=== PATIENT | female | born 1985 | race Caucasian/White ===

== ENCOUNTER 2023-08-29 07:55 | Outpatient (CLI) | payer BC | END 2023-08-29 07:56 | disposition home or self-care (01) | LOC: BICMAMMO 07:55 | PROVIDERS: ATTEND Student in an Organized Health Care Education/Training Program | DX: Z12.31 Encounter for screening mammogram for malignant neoplasm of breast (principal) | CPT/HCPCS: 77063; 77067 ==

== ENCOUNTER 2023-10-18 06:07 | Day surgery (SDC) | payer BC ==
[2023-10-17 15:25] VITALS: BMI 32.1
[2023-10-18] MEDS ORDERED: Acetaminophen 500 MG TAB ONE (06:29)
[2023-10-18] MEDS ORDERED: Ketorolac Tromethamine 30 MG (1 mL) VIAL ONE (06:29)
[2023-10-18] MEDS ORDERED: Indocyanine Green 25 MG/10 ML VIAL ONE (06:46)
[2023-10-18] MEDS ORDERED: EPINEPHrine 1 MG/ML VIAL ONE (06:46)
[2023-10-18] MEDS ORDERED: Bupivacaine 0.25% HCL 30 ML VIAL ONE (06:47)
[2023-10-18] MEDS ORDERED: Rocuronium Bromide 10 MG/ML (10ML VIAL) ONE (07:00)
[2023-10-18] MEDS ORDERED: PROPOFOL 20 ML ONE (07:00)
[2023-10-18] MEDS ORDERED: Lidocaine 1% PF 5 ML VIAL ONE (07:00)
[2023-10-18] MEDS ORDERED: fentaNYL PF 100 MCG/2 ML SYRINGE ONE (07:00)
[2023-10-18] MEDS ORDERED: CEFAZOLIN 2 GM VIAL ONE (07:21)
[2023-10-18] MEDS ORDERED: Sodium Chloride 0.9% 100 ML ONE (07:21)
[2023-10-18] MEDS ORDERED: Dexamethasone 20 MG/5 ML VIAL ONE (07:48)
[2023-10-18] MEDS ORDERED: Ondansetron PF 4 MG/2 ML Vial ONE (07:48)
[2023-10-18] MEDS ORDERED: NEOSTIGMINE 3 MG/3 ML SYR 3 MG/3 ML SYRINGE ONE (08:17)
[2023-10-18] MEDS ORDERED: Glycopyrrolate 0.2 MG/ML 5 ML SYRINGE ONE (08:17)
[2023-10-18] MEDS ORDERED: fentaNYL 50 mcg/mL 1 mL Vial ONE ×2 (08:47→09:12)
[2023-10-18] MEDS ORDERED: Promethazine HCl 25 MG/ML VIAL ONE (08:53)
[2023-10-18] MEDS ORDERED: HYDROcodone/Acetaminophen 5/325 mg Tablet ONE (10:00)
== END 2023-10-18 10:56 | disposition home or self-care (01) ==
LOC: SDC 06:07
PROVIDERS: ATTEND Specialist
PROC: 0FT44ZZ Resection of Gallbladder, Percutaneous Endoscopic Approach (ICD-10-PCS; principal; 2023-10-18)
PROC: BF03YZZ Plain Radiography of Gallbladder and Bile Ducts using Other Contrast (ICD-10-PCS; principal; 2023-10-18)
DX: K80.10 Calculus of gallbladder with chronic cholecystitis without obstruction (principal); Z87.891 Personal history of nicotine dependence
CPT/HCPCS: 88304; C1889; J0171; J0665; J1100; J1885; J2405; J2550; J2704; J3010; J3490

== ENCOUNTER 2024-09-05 08:48 | Outpatient (CLI) | payer BC | END 2024-09-05 08:49 | disposition home or self-care (01) | LOC: BICMAMMO 08:48 | PROVIDERS: ATTEND Student in an Organized Health Care Education/Training Program | DX: Z12.31 Encounter for screening mammogram for malignant neoplasm of breast (principal) | CPT/HCPCS: 77063; 77067 ==